=== PATIENT | male | born 1970 | race Caucasian/White ===

== ENCOUNTER 2021-04-04 01:42 | Emergency (ER) | payer OTHER, SELFPAY ==
[2021-04-04 01:43] VITALS: BP 138/90; PULSE 64; RESP 18; TEMP 36.6; O2SAT 96; BMI 29.5
--- NOTE | 2021-04-04 01:54 | W.ED.DENTAL ---
HPI - Dental/Oral General: Chief complaint: Dental/Oral Stated complaint: tooth pain Time Seen by Provider: 04/04/21 01:54 History of Present Illness: HPI Narrative: Patient comes in today for complaints of right lower jaw and dental pain. Patient had a filling and root canal done about 3 weeks ago and over the last week he has had increased pain and discomfort. Patient's dentist is out of town patient is going to try to go see another dentist tomorrow but was needing something for pain tonight. MD Complaint: tooth pain Onset (ago): day(s) Severity: severe Relieving factors: nothing Exacerbating factors: cold Context: history of dental caries Associated symptoms: Reports ear or mastoid pain Review of Systems General: Reports: 10 or more systems reviewed and unremarkable except in HPI and below ENMT: Reports: ear or mastoid pain Physical Exam Const: COMMON NORMALS: no acute distress and patient oriented x3 GENERAL APPEARANCE: cooperative HENMT: COMMON NORMALS: normocephalic, TM's normal bilaterally and Normal external nose present HEAD & SCALP: normal to inspection and normocephalic NOSE: Normal external nose present TYMPANIC MEMBRANE: TM's normal bilaterally MOUTH: Normal oral and palatal mucosa present THROAT: posterior oropharynx normal Eye: GENERAL EYE: appearance normal, both eyes and all related structures Neck/C-Spine: COMMON NORMALS: full ROM Chest: COMMONS NORMALS: normal inspection of the chest Resp: COMMON NORMALS: normal respiratory effort EFFORT & INSPECTION: Yes able to speak in complete sentences Cardio: COMMON NORMALS: regular rate and regular rhythm RATE: regular rate RHYTHM: regular rhythm GI: COMMON NORMALS: non-tender Extremity: COMMON NORMALS: normal to inspection Neuro: COMMON NORMALS: patient oriented x3 and moves all extremities Psych: COMMON NORMALS: mental status grossly normal and cooperative Skin: COMMON NORMALS: no rashes or lesions noted GENERAL SKIN EXAM: no rashes or lesions noted Course Vital Signs: Vital signs: Vital Signs Temperature 97.9 F 04/04/21 01:43 Pulse Rate 64 04/04/21 01:43 Respiratory Rate 18 04/04/21 01:43 Blood Pressure 138/90 04/04/21 01:43 Pulse Oximetry 96 04/04/21 01:43 MDM - Dental/Oral MDM Narrative: Medical decision making narrative: Patient comes in tonight for left lower jaw pain. Patient has a history of a dental procedure done about 3 weeks ago. On exam noted no obvious abscess. Patient has good range of motion of the jaw. Posterior pharynx and sublingual area are without significant induration or swelling. Differential diagnosis includes but not limited to dental abscess, tooth decay, odontalgia. Patient was given a dental block, started on clindamycin, and given 1 hydrocodone 7-11/04 325. Patient was recommended to follow-up with dentist in the morning. Patient reported understanding of care plan and need for follow-up or return to the ER. Discharge Plan Discharge Patient Disposition: Home Clinical Impression: Toothache Condition: Stable Prescriptions: New clindamycin HCl 300 mg capsule 300 mg PO TID 7 Days Qty: 21 RF: 0 Discharge Orders: Discharge ED (Routine); Ordered 04/04/21 Ordered By: Terry Becerra Discharge Diet: Usual diet Discharge Activity: Increase activity as tolerated Patient Instructions: Toothache (ED), Opioid Safety Activity Restrictions/Additional Instructions: Follow-up with dentist in the morning. Take antibiotic as directed. Coding Level of Care Code ED Environmental Science Professor for Jabier Zhong
[2021-04-04] MEDS: HYDROcodone-acetaminophen 7.5-325 mg Tablet 1 TAB PO (02:03)
[2021-04-04] MEDS: lidocaine 1% INJ 20 mL INJECTION (02:04)
[2021-04-04] MEDS: clindamycin 150 mg Capsule 300 MG PO (02:04)
[2021-04-04 02:13] VITALS: RESP 18
== END 2021-04-04 02:13 | disposition home or self-care (01) ==
PROVIDERS: Emergency Provider Nurse Practitioner Family
DX: K08.89 Other specified disorders of teeth and supporting structures (principal)
CPT/HCPCS: 99283